=== PATIENT | female | born 1985 | race Caucasian/White ===

== ENCOUNTER → 2020-12-05 | Outpatient (CLI) | payer MEDICARE, OTHER ==
[~2020-12-05] MED LIST: ARTANE 2MG TABLE2 MG GT; ASPIRIN CHEWABL81 MG PO; BACLOFEN PUMP SC; BACLOFEN5 MG GT; CITRATE OF MAG296 ML PO; COLACE SOL100 MG/10 GT; FLEET ENEMA EX230 ML PR; IBUPROFEN PO; KLONOPIN TAB 00.5 MG GT; MIRALAX17 GM PO; OXYCODONE GT; OZOBAX5 MG/5 ML GT; POTASSIUM20 MEQ/11 GT; PRENATAL TABLE1 EAC3 GT; ZOLOFT50 MG GT
[2020-12-05 16:20] LABS: BUN/CREATININE RATIO 44 (0-10)
[2020-12-05 16:24] LABS: HEMOGLOBIN 12.9 gm/dl (12.3-15.3); RED BLOOD COUNT 4.06 M/UL (4.00-5.10); WHITE BLOOD COUNT 5.6 K/UL (4.5-11.0)
== END ==
LOC: LAB 15:01
PROVIDERS: Nurse Practitioner Family
DX: K59.00 Constipation, unspecified (principal); Z78.9 Other specified health status
CPT/HCPCS: 36415; 80053; 84439; 84443; 85025

== ENCOUNTER 2021-01-04 11:31 | Emergency (ER) | payer MEDICARE, OTHER ==
[2021-01-04 12:56] LABS: HEMOGLOBIN 13.3 gm/dl (12.3-15.3); RED BLOOD COUNT 4.12 M/UL (4.00-5.10); WHITE BLOOD COUNT 5.8 K/UL (4.5-11.0)
[2021-01-04 13:26] LABS: BUN/CREATININE RATIO 34 (0-10)
== END 2021-01-04 14:20 | disposition home or self-care (01) ==
LOC: ER1 11:31
PROVIDERS: Physician Assistant
DX: R41.82 Altered mental status, unspecified (principal); Z87.820 Personal history of traumatic brain injury; Z98.890 Other specified postprocedural states
CPT/HCPCS: 70450; 71045; 80053; 81001; 83605; 85025; 87040; 93005; 99285

== ENCOUNTER → 2021-02-28 | Outpatient (CLI) | payer MEDICARE, OTHER | LOC: RAD 15:02 | DX: K59.00 Constipation, unspecified (principal); K56.41 Fecal impaction | CPT/HCPCS: 74018 ==

== ENCOUNTER 2021-03-01 21:46 | Emergency (ER) | payer MEDICARE, OTHER | END 2021-03-02 02:20 | disposition home or self-care (01) | LOC: ER1 21:46 | DX: Z43.1 Encounter for attention to gastrostomy (principal); R21 Rash and other nonspecific skin eruption | CPT/HCPCS: 43762; 74018; 99283; Q9963 ==

== ENCOUNTER → 2021-03-21 | Outpatient (CLI) | payer MEDICARE, OTHER | LOC: RAD 13:53 | DX: K59.00 Constipation, unspecified (principal); R14.3 Flatulence | CPT/HCPCS: 74018 ==

== ENCOUNTER → 2021-05-16 | Outpatient (CLI) | payer MEDICARE, OTHER ==
[2021-05-16 15:18] LABS: HEMOGLOBIN 12.3 gm/dl (12.3-15.3); RED BLOOD COUNT 3.82 M/UL (4.00-5.10); WHITE BLOOD COUNT 5.6 K/UL (4.5-11.0)
[2021-05-16 15:35] LABS: BUN/CREATININE RATIO 34 (0-10)
== END ==
LOC: LAB 14:20
PROVIDERS: Nurse Practitioner Family
DX: B19.20 Unspecified viral hepatitis C without hepatic coma (principal)
CPT/HCPCS: 36415; 80053; 85025

== ENCOUNTER 2021-05-18 07:06 | Emergency (ER) | payer MEDICARE, OTHER | END 2021-05-18 08:47 | disposition home or self-care (01) | LOC: ER1 07:06 | DX: K94.23 Gastrostomy malfunction (principal); Z87.820 Personal history of traumatic brain injury | CPT/HCPCS: 43762; 74018; 99283; Q9963 ==

== ENCOUNTER → 2021-06-05 | Outpatient (CLI) | payer MEDICARE, OTHER | LOC: US 09:09 | DX: B19.20 Unspecified viral hepatitis C without hepatic coma (principal); R18.8 Other ascites | CPT/HCPCS: 76705 ==

== ENCOUNTER 2021-07-09 10:25 | Emergency (ER) | payer MEDICARE, OTHER | END 2021-07-09 13:30 | disposition home or self-care (01) | LOC: ER1 10:25 | DX: K94.23 Gastrostomy malfunction (principal) | CPT/HCPCS: 43752; 74018; 99283 ==

== ENCOUNTER → 2021-08-23 | Outpatient (CLI) | payer MEDICARE, OTHER | LOC: CT 07:23 | DX: R10.9 Unspecified abdominal pain (principal) | CPT/HCPCS: Q9967 ==

== ENCOUNTER → 2021-10-10 | Outpatient (CLI) | payer MEDICARE, OTHER ==
[2021-10-10 08:43] LABS: HEMOGLOBIN 10.7 gm/dl (12.3-15.3); RED BLOOD COUNT 3.27 M/UL (4.00-5.10); WHITE BLOOD COUNT 4.2 K/UL (4.5-11.0)
[2021-10-10 09:03] LABS: BUN/CREATININE RATIO 33 (0-10)
== END ==
LOC: CT 07:27
PROVIDERS: Nurse Practitioner Family
DX: R10.9 Unspecified abdominal pain (principal); K59.00 Constipation, unspecified; R47.01 Aphasia; R53.81 Other malaise
CPT/HCPCS: 36415; 80053; 84439; 84443; 85025; Q9967

== ENCOUNTER 2021-10-12 15:01 | Emergency (ER) | payer MEDICARE, OTHER | END 2021-10-12 19:39 | disposition home or self-care (01) | LOC: ER1 15:01 | DX: K94.20 Gastrostomy complication, unspecified (principal) | CPT/HCPCS: 43762; 74018; 96372; 99283; J2060; Q9963 ==

== ENCOUNTER 2021-10-18 15:56 | Emergency (ER) | payer MEDICARE, OTHER | END 2021-10-18 17:02 | disposition home or self-care (01) | LOC: ER1 15:56 | DX: Z43.1 Encounter for attention to gastrostomy (principal) | CPT/HCPCS: 43762; 74018; 99283; Q9963 ==

== ENCOUNTER → 2021-10-23 | Outpatient (CLI) | payer MEDICARE, OTHER | LOC: LAB 14:44 | DX: D64.9 Anemia, unspecified (principal); E46 Unspecified protein-calorie malnutrition | CPT/HCPCS: 36415; 82607; 82728; 82746; 83540; 83550; 83615; 84466; 85045 ==

== ENCOUNTER 2021-11-03 00:55 | Emergency (ER) | payer MEDICARE, OTHER ==
[2021-11-03 01:57] LABS: HEMOGLOBIN 10.4 gm/dl (12.3-15.3); RED BLOOD COUNT 3.18 M/UL (4.00-5.10); WHITE BLOOD COUNT 3.5 K/UL (4.5-11.0)
[2021-11-03 02:17] LABS: BUN/CREATININE RATIO 45 (0-10)
[2021-11-03] MEDS ORDERED: KEPPRA500 MG PO (03:55)
== END 2021-11-03 04:45 | disposition home or self-care (01) ==
LOC: ER1 00:55
PROVIDERS: Physician Assistant
DX: R56.9 Unspecified convulsions (principal); Z20.822 Contact with and (suspected) exposure to COVID-19
CPT/HCPCS: 0240U; 51702; 70450; 71045; 80053; 80307; 81001; 83690; 83735; 84703; 85025; 87086; 93005; 96374; 99285; J1953

== ENCOUNTER 2021-11-08 14:38 | Emergency (ER) | payer MEDICARE, OTHER ==
[~2021-11-08 14:38] MED LIST changes: +KEPPRA500 MG PO
[2021-11-08 16:25] LABS: HEMOGLOBIN 12.2 gm/dl (12.3-15.3); RED BLOOD COUNT 3.64 M/UL (4.00-5.10); WHITE BLOOD COUNT 5.2 K/UL (4.5-11.0)
[2021-11-08 16:46] LABS: BUN/CREATININE RATIO 40 (0-10)
[2021-11-08 17:53] LABS: BORDETELLA PARAPERTUSSIS Not Detected (Not Detectd); BORDETELLA PERTUSSIS Not Detected (Not Detectd); CHLAMYDIA PNEUMONIAE Not Detected (Not Detectd); CORONAVIRUS HKU1 Not Detected (Not Detectd); CORONAVIRUS NL63 Not Detected (Not Detectd); CORONAVIRUS OC43 Not Detected (Not Detectd); CORONOAVIRUS 229E Not Detected (Not Detectd); HUMAN METAPNEUMOVIRUS Not Detected (Not Detectd); HUMAN RHINOVIRUS/ENTEROVIRUS Not Detected (Not Detectd); INFLUENZA A Not Detected (Not Detectd); INFLUENZA B Not Detected (Not Detectd); MYCOPLASMA PNEUMONIAE Not Detected (Not Detectd); PARAINFLUENZA VIRUS 1 Not Detected (Not Detectd); PARAINFLUENZA VIRUS 2 Not Detected (Not Detectd); PARAINFLUENZA VIRUS 3 Not Detected (Not Detectd); PARAINFLUENZA VIRUS 4 Not Detected (Not Detectd); RESPIRATORY SYNCYTIAL VIRUS Not Detected (Not Detectd)
[2021-11-08 19:38] LABS: SARS-CoV-2 NOT DETECTED (Not Detectd)
== END 2021-11-09 00:35 | disposition home or self-care (01) ==
LOC: ER1 14:38
PROVIDERS: Nurse Practitioner; Physician Assistant
DX: K94.23 Gastrostomy malfunction (principal); R53.83 Other fatigue; Z20.822 Contact with and (suspected) exposure to COVID-19
CPT/HCPCS: 43762; 51701; 70450; 71045; 71250; 74018; 80048; 81001; 83605; 84439; 84443; 85025; 87040; 87086; 87633; 96374; 99284; J2405; J7030; Q9963

== ENCOUNTER 2021-11-25 14:12 | Emergency (ER) | payer MEDICARE, OTHER | END 2021-11-25 15:48 | disposition home or self-care (01) | LOC: ER1 14:12 | DX: K59.00 Constipation, unspecified (principal); G40.909 Epilepsy, unspecified, not intractable, without status epilepticus | CPT/HCPCS: 99283 ==

== ENCOUNTER 2021-12-01 01:47 | Emergency (ER) | payer MEDICARE, MEDICAID, OTHER ==
[2021-12-01 02:29] LABS: HEMOGLOBIN 10.3 gm/dl (12.3-15.3); RED BLOOD COUNT 3.2 M/UL (4.00-5.10); WHITE BLOOD COUNT 8.4 K/UL (4.5-11.0)
[2021-12-01 02:58] LABS: BUN/CREATININE RATIO 49 (0-10)
== END 2021-12-01 04:57 | disposition home or self-care (01) ==
LOC: ER1 01:47
PROVIDERS: Family Medicine
DX: S86.812A Strain of other muscle(s) and tendon(s) at lower leg level, left leg, initial encounter (principal); F17.290 Nicotine dependence, other tobacco product, uncomplicated; W22.8XXA Striking against or struck by other objects, initial encounter
CPT/HCPCS: 0240U; 71045; 80048; 82550; 82553; 83605; 83874; 83880; 84484; 85025; 93005; 99284

== ENCOUNTER 2022-01-30 13:44 | Emergency (ER) | payer MEDICARE, OTHER ==
[~2022-01-30 13:44] MED LIST changes: +ASPIRIN CHEWABL81 MG GT; -ASPIRIN CHEWABL81 MG PO
[2022-01-30 14:37] LABS: BORDETELLA PARAPERTUSSIS Not Detected (Not Detectd); BORDETELLA PERTUSSIS Not Detected (Not Detectd); CHLAMYDIA PNEUMONIAE Not Detected (Not Detectd); CORONAVIRUS HKU1 Not Detected (Not Detectd); CORONAVIRUS NL63 Not Detected (Not Detectd); CORONAVIRUS OC43 Not Detected (Not Detectd); CORONOAVIRUS 229E Not Detected (Not Detectd); HUMAN METAPNEUMOVIRUS Not Detected (Not Detectd); HUMAN RHINOVIRUS/ENTEROVIRUS Not Detected (Not Detectd); INFLUENZA A Not Detected (Not Detectd); INFLUENZA B Not Detected (Not Detectd); MYCOPLASMA PNEUMONIAE Not Detected (Not Detectd); PARAINFLUENZA VIRUS 1 Not Detected (Not Detectd); PARAINFLUENZA VIRUS 2 Not Detected (Not Detectd); PARAINFLUENZA VIRUS 3 Not Detected (Not Detectd); PARAINFLUENZA VIRUS 4 Not Detected (Not Detectd); RESPIRATORY SYNCYTIAL VIRUS Not Detected (Not Detectd)
[2022-01-30 14:41] LABS: HEMOGLOBIN 10.6 gm/dl (12.3-15.3); RED BLOOD COUNT 3.26 M/UL (4.00-5.10); WHITE BLOOD COUNT 5.4 K/UL (4.5-11.0)
[2022-01-30 16:31] LABS: SARS-CoV-2 NOT DETECTED (Not Detectd)
[2022-01-30] MEDS ORDERED: CEFDINIR250 MG/5 M PO (16:40)
== END 2022-01-30 18:50 | disposition home or self-care (01) ==
LOC: ER1 13:44
PROVIDERS: Emergency Medicine
DX: E86.0 Dehydration (principal); N39.0 Urinary tract infection, site not specified; Z20.822 Contact with and (suspected) exposure to COVID-19; N17.9 Acute kidney failure, unspecified
CPT/HCPCS: 36415; 71045; 74018; 80053; 81001; 83690; 85025; 87077; 87086; 87186; 87633; 96374; 99285; J0696; Q9963

== ENCOUNTER 2022-02-03 09:05 | Inpatient (IN) | payer MEDICARE, OTHER ==
[~2022-02-03] VITALS: Ht 170.2 cm; Wt 65.8 kg
[~2022-02-03 09:05] MED LIST changes: +CEFDINIR250 MG/5 M PO
[2022-02-03 10:45] LABS: RED BLOOD COUNT 5.2 M/UL (4.00-5.10); WHITE BLOOD COUNT 2.5 K/UL (4.5-11.0)
[2022-02-03 10:48] LABS: HEMOGLOBIN 16.7 gm/dl (12.3-15.3)
[2022-02-03 13:17] LABS: BUN/CREATININE RATIO 30 (0-10)
[2022-02-03] MEDS ORDERED: LACTULOSE10 GM/15 M GT (14:28)
[2022-02-03] MEDS ORDERED: LEVETIRACETAM500 MG GT (14:28)
[2022-02-03] MEDS ORDERED: CLONAZEPAM1 MG PO (14:29)
[2022-02-03] MEDS ORDERED: TRAZODONE HCL150 MG PO (14:29)
[2022-02-03] MEDS ORDERED: METAMUCIL PACK3.4 GM PO (14:29)
[2022-02-04 06:45] LABS: BUN/CREATININE RATIO 21 (0-10)
[2022-02-04 07:31] LABS: WHITE BLOOD COUNT 4.6 K/UL (4.5-11.0)
[2022-02-04 07:32] LABS: HEMOGLOBIN 9.3 gm/dl (12.3-15.3); RED BLOOD COUNT 2.89 M/UL (4.00-5.10)
[2022-02-05 06:46] LABS: BUN/CREATININE RATIO 22 (0-10)
--- NOTE | 2022-02-05 13:39 | NUR ---
UPON ENTERING PATIENTS ROOM PATIENT IS NOTED TO HAVE PULLED HER PEG TUBE OUT. PATIENT HAS MILD BLEEDING AT THE SITE. MOTHER IS NOT AT PATIENTS BEDSIDE. CONTACTED AND SHE STATED TO CALL THE SURGEON HANDKERCHIEF MAKER AND SPEAK WITH THEM ABOUT THE CASE.
--- NOTE | 2022-02-05 13:45 | NUR ---
STATED TO GET A REPLACEMENT TUBE AND HE WOULD REINSERT AT BEDSIDE. HE STATES TO LEAVE TH SITE OPEN TO AIR FOR NOW.
[2022-02-06 08:02] LABS: BUN/CREATININE RATIO 19 (0-10)
--- NOTE | 2022-02-06 14:44 | NUR ---
REPORT CALLED TO [facility]
--- NOTE | 2022-02-06 17:29 | NUR ---
AMBULANCE HAD ARRIVED TO TRANSPORT PATIENT HOME. WHEN RN ATTEMPTED TO REMOVE IV, RN OBSERVED PAG TUBE HAD BEEN PULLED OUT AND THROWN IN THE FLOOR. RN ATTEMPTED TO NOTIFY DR. ODOM, NO ANSWER. RN LEFT CALL BACK NUMBER. RN CALLED DR. MOHAMUD TO NOTIFY HER. INSTRUCTED RN TO NOTIFY DR. ODOM. RN TO CALL AGAIN. EXECUTIVE SECRETARY MADE AWARE.
--- NOTE | 2022-02-06 17:55 | NUR ---
RN NOTIFIED DR. TOPETE ABOUT PATIENT PULLING OUT PEG TUBE. MD STATED HE WOULD COME ASSESS PATIENT.
--- NOTE | 2022-02-06 20:08 | NUR ---
[facility] NOTIFIED AT 195002/06/22 THAT PT IS READY FOR TRANSPORT BACK TO HOME AFTER BEING DISCHARGED.
== END 2022-02-06 20:19 | disposition home or self-care (01) | DRG 923 ==
LOC: ER1 09:05 → CDU 13:48 → M/S 13:48
PROVIDERS: Emergency Medicine; Physician Assistant; ADMIT Internal Medicine
PROC: 3E03329 Introduction of Other Anti-infective into Peripheral Vein, Percutaneous Approach (ICD-10-PCS; principal; 2022-02-03)
PROC: 0DH63UZ Insertion of Feeding Device into Stomach, Percutaneous Approach (ICD-10-PCS; 2022-02-06)
DX: T68.XXXA Hypothermia, initial encounter (principal); N30.00 Acute cystitis without hematuria; E87.3 Alkalosis; Z20.822 Contact with and (suspected) exposure to COVID-19; K59.09 Other constipation; B96.1 Klebsiella pneumoniae [K. pneumoniae] as the cause of diseases classified elsewhere; G40.909 Epilepsy, unspecified, not intractable, without status epilepticus; R33.8 Other retention of urine; Z87.820 Personal history of traumatic brain injury; Z93.1 Gastrostomy status; Z93.3 Colostomy status; Z80.3 Family history of malignant neoplasm of breast; Z87.891 Personal history of nicotine dependence; Z98.890 Other specified postprocedural states; Z79.899 Other long term (current) drug therapy; Z79.82 Long term (current) use of aspirin
CPT/HCPCS: 36415; 51702; 71045; 74018; 80048; 80053; 80202; 81001; 82550; 82553; 83605; 83735; 84484; 84703; 85025; 87040; 87086; 93005; 96374; 99285; J0696; J3370; J7070; Q9963; Q9967; U0002

== ENCOUNTER 2022-02-07 17:42 | Emergency (ER) | payer MEDICARE, OTHER ==
[~2022-02-07 17:42] MED LIST changes: +CLONAZEPAM1 MG PO; +LACTULOSE10 GM/15 M GT; +LEVETIRACETAM500 MG GT; +METAMUCIL PACK3.4 GM PO; +TRAZODONE HCL150 MG PO
[2022-02-07 18:51] LABS: HEMOGLOBIN 10.1 gm/dl (12.3-15.3); RED BLOOD COUNT 3.08 M/UL (4.00-5.10); WHITE BLOOD COUNT 4.1 K/UL (4.5-11.0)
[2022-02-07 18:55] LABS: BUN/CREATININE RATIO 24 (0-10)
== END 2022-02-08 00:11 | disposition home or self-care (01) ==
LOC: ER1 17:42
PROVIDERS: Physician Assistant
DX: R68.0 Hypothermia, not associated with low environmental temperature (principal); R30.0 Dysuria
CPT/HCPCS: 71045; 80053; 81001; 83605; 83735; 83880; 84100; 84439; 84443; 85025; 85610; 85652; 85730; 86140; 87040; 87086; 93005; 96374; 99285; J0696; Q9967

== ENCOUNTER → 2022-02-21 | Outpatient (CLI) | payer MEDICARE, OTHER | LOC: CT 10:14 | DX: S06.9X9A Unspecified intracranial injury with loss of consciousness of unspecified duration, initial encounter (principal); T68.XXXA Hypothermia, initial encounter | CPT/HCPCS: 70450 ==

== ENCOUNTER → 2022-03-17 | Outpatient (CLI) | payer MEDICARE, OTHER | LOC: KOH-I 15:24 | DX: J18.9 Pneumonia, unspecified organism (principal) | CPT/HCPCS: 71045 ==

== ENCOUNTER → 2022-03-31 | Outpatient (CLI) | payer MEDICARE, OTHER | LOC: KOH-I 15:52 | DX: J18.9 Pneumonia, unspecified organism (principal); J98.11 Atelectasis | CPT/HCPCS: 71045 ==

== ENCOUNTER 2022-04-14 15:49 | Emergency (ER) | payer MEDICARE, OTHER ==
[2022-04-14 16:25] LABS: HEMOGLOBIN 10.9 gm/dl (12.3-15.3); RED BLOOD COUNT 3.29 M/UL (4.00-5.10); WHITE BLOOD COUNT 3.6 K/UL (4.5-11.0)
[2022-04-14 16:51] LABS: BUN/CREATININE RATIO 58 (0-10)
== END 2022-04-14 20:30 | disposition home or self-care (01) ==
LOC: ER1 15:49
PROVIDERS: Nurse Practitioner
DX: R45.1 Restlessness and agitation (principal); Z20.822 Contact with and (suspected) exposure to COVID-19; Z79.82 Long term (current) use of aspirin
CPT/HCPCS: 0240U; 51701; 71045; 80053; 81001; 83605; 85025; 87040; 87086; 99285

== ENCOUNTER 2022-05-11 07:28 | Emergency (ER) | payer MEDICARE, OTHER | END 2022-05-11 09:36 | disposition home or self-care (01) | LOC: ER1 07:28 | DX: Z43.1 Encounter for attention to gastrostomy (principal) | CPT/HCPCS: 43762; 74018; 99283; Q9963 ==

== ENCOUNTER → 2022-05-13 | Outpatient (CLI) | payer MEDICARE, OTHER ==
[2022-05-13 14:01] LABS: HEMOGLOBIN 10.9 gm/dl (12.3-15.3); RED BLOOD COUNT 3.29 M/UL (4.00-5.10); WHITE BLOOD COUNT 3.2 K/UL (4.5-11.0)
[2022-05-13 14:29] LABS: BUN/CREATININE RATIO 27 (0-10)
== END ==
LOC: OPSV 13:00
PROVIDERS: Nurse Practitioner Family
DX: R82.90 Unspecified abnormal findings in urine (principal); D64.9 Anemia, unspecified; R79.89 Other specified abnormal findings of blood chemistry; K59.00 Constipation, unspecified; R53.81 Other malaise; R09.89 Other specified symptoms and signs involving the circulatory and respiratory systems
CPT/HCPCS: 71045; 80053; 81001; 82728; 83540; 83550; 84439; 84443; 84466; 85025; 87086; G0463

== ENCOUNTER → 2022-05-21 | Outpatient (CLI) | payer MEDICARE, OTHER ==
[~2022-05-21] MED LIST changes: +VIBRAMYCIN 55 MG/ML GT
[2022-05-21 15:00] LABS: BUN/CREATININE RATIO 44 (0-10)
== END ==
LOC: LAB 13:34
PROVIDERS: Nurse Practitioner Family
DX: R79.81 Abnormal blood-gas level (principal)
CPT/HCPCS: 36415; 80048

== ENCOUNTER 2022-05-22 23:51 | Emergency (ER) | payer MEDICARE, OTHER ==
[~2022-05-22 23:51] MED LIST changes: -VIBRAMYCIN 55 MG/ML GT
[2022-05-23 02:31] LABS: HEMOGLOBIN 10.4 gm/dl (12.3-15.3); RED BLOOD COUNT 3.11 M/UL (4.00-5.10); WHITE BLOOD COUNT 6.2 K/UL (4.5-11.0)
[2022-05-23 02:48] LABS: BUN/CREATININE RATIO 43 (0-10)
[2022-05-23] MEDS ORDERED: VIBRAMYCIN 55 MG/ML GT (03:31)
--- NOTE | 2022-05-23 03:31 | NUR ---
ATTEMPTED TO NT SX PT X'S 2, UNABLE TO PASS SX CATH DOWN BOTH NARES. SMALL AMOUNT OF BLEEDING TO LEFT NARE WAS PRESENT. ORAL SX ATTEMPTED X'S 1 PT UNABLE TO PRODUCE SAMPLE.
[2022-05-24 01:00] LABS: KPC-CARBAPENEM-RESISTANCE GENE Not Detected (Negative); vanA/B (VANCOMYCIN RESIST GENE Not Detected (Negative)
[2022-05-24 01:01] LABS: CANDIDA ALBICANS Not Detected (Negative); CANDIDA KRUSEI Not Detected (Negative); CANDIDA TROPICALIS Not Detected (Negative); ESCHERICHIA COLI Not Detected (Negative); HAEMOPHILUS INFLUENZAE Not Detected (Negative); KLEBSIELLA OXYTOCA Not Detected (Negative); KLEBSIELLA PNEUMONIAE Not Detected (Negative); PROTEUS Not Detected (Negative); PSEUDOMONAS AERUGINOSA Not Detected (Negative); SERRATIA MARCESANS Not Detected (Negative); STAPHYLOCOCCUS AUREUS Not Detected (Negative); STREP AGALACTIAE (GROUP B) Not Detected (Negative); STREP PYOGENES (GROUP A) Not Detected (Negative); STREPTOCOCCUS Not Detected (Negative)
[2022-05-24 02:11] LABS: STAPHYLOCOCCUS DETECTED (Negative)
== END 2022-05-23 04:50 | disposition home or self-care (01) ==
LOC: ER1 23:51
PROVIDERS: Physician Assistant
DX: J18.9 Pneumonia, unspecified organism (principal); N39.0 Urinary tract infection, site not specified; Z51.81 Encounter for therapeutic drug level monitoring
CPT/HCPCS: 36600; 71045; 80053; 81001; 82803; 83605; 83735; 83880; 84100; 85025; 85610; 85652; 85730; 86140; 87040; 87077; 87086; 87150; 87186; 96374; 99284; J7030

== ENCOUNTER 2022-06-10 10:09 | Emergency (ER) | payer MEDICARE, OTHER ==
[~2022-06-10 10:09] MED LIST changes: -OMNICEF 300 MG300 MG PO; -ZITHROMAX250 MG PO
[2022-06-10 12:03] LABS: HEMOGLOBIN 10.6 gm/dl (12.3-15.3); RED BLOOD COUNT 3.17 M/UL (4.00-5.10); WHITE BLOOD COUNT 9.1 K/UL (4.5-11.0)
[2022-06-10 12:30] LABS: BORDETELLA PARAPERTUSSIS Not Detected (Not Detectd); BORDETELLA PERTUSSIS Not Detected (Not Detectd); CHLAMYDIA PNEUMONIAE Not Detected (Not Detectd); CORONAVIRUS HKU1 Not Detected (Not Detectd); CORONAVIRUS NL63 Not Detected (Not Detectd); CORONAVIRUS OC43 Not Detected (Not Detectd); CORONOAVIRUS 229E Not Detected (Not Detectd); HUMAN METAPNEUMOVIRUS Not Detected (Not Detectd); HUMAN RHINOVIRUS/ENTEROVIRUS Not Detected (Not Detectd); INFLUENZA A Not Detected (Not Detectd); INFLUENZA B Not Detected (Not Detectd); MYCOPLASMA PNEUMONIAE Not Detected (Not Detectd); PARAINFLUENZA VIRUS 1 Not Detected (Not Detectd); PARAINFLUENZA VIRUS 2 Not Detected (Not Detectd); PARAINFLUENZA VIRUS 3 Not Detected (Not Detectd); PARAINFLUENZA VIRUS 4 Not Detected (Not Detectd); RESPIRATORY SYNCYTIAL VIRUS Not Detected (Not Detectd)
[2022-06-10 13:05] LABS: BUN/CREATININE RATIO 41 (0-10)
[2022-06-10 13:26] LABS: SARS-CoV-2 NOT DETECTED (Not Detectd)
[2022-06-10] MEDS ORDERED: OMNICEF 300 MG300 MG PO (16:37)
[2022-06-10] MEDS ORDERED: ZITHROMAX250 MG PO (16:37)
== END 2022-06-10 17:44 | disposition home or self-care (01) ==
LOC: ER1 10:09
PROVIDERS: Physician Assistant
DX: J18.9 Pneumonia, unspecified organism (principal); R31.9 Hematuria, unspecified; G40.909 Epilepsy, unspecified, not intractable, without status epilepticus; Z20.822 Contact with and (suspected) exposure to COVID-19
CPT/HCPCS: 71045; 76705; 80053; 81001; 85025; 87633; 96374; 96375; 99284; J0696; J2060

== ENCOUNTER → 2022-06-10 | Outpatient (CLI) | payer MEDICARE, OTHER ==
[~2022-06-10] MED LIST changes: +OMNICEF 300 MG300 MG PO; +VIBRAMYCIN 55 MG/ML GT; +ZITHROMAX250 MG PO
== END ==
LOC: KOH-I 07:59
DX: B19.20 Unspecified viral hepatitis C without hepatic coma (principal); N26.1 Atrophy of kidney (terminal)
CPT/HCPCS: 76705

== ENCOUNTER 2022-06-18 17:28 | Emergency (ER) | payer MEDICARE, OTHER ==
[~2022-06-18 17:28] MED LIST changes: +OMNICEF 300 MG300 MG PO; +ZITHROMAX250 MG PO
[2022-06-18 19:46] LABS: HEMOGLOBIN 11.3 gm/dl (12.3-15.3); RED BLOOD COUNT 3.4 M/UL (4.00-5.10); WHITE BLOOD COUNT 9.4 K/UL (4.5-11.0)
[2022-06-18 20:20] LABS: BUN/CREATININE RATIO 40 (0-10)
== END 2022-06-18 21:25 | disposition home or self-care (01) ==
LOC: ER1 17:28
PROVIDERS: Physician Assistant
DX: R10.9 Unspecified abdominal pain (principal); R11.10 Vomiting, unspecified; Z20.822 Contact with and (suspected) exposure to COVID-19
CPT/HCPCS: 0240U; 51701; 71045; 74018; 80053; 81001; 83690; 85025; 99284; Q9963

== ENCOUNTER 2022-06-28 17:55 | Emergency (ER) | payer MEDICARE, OTHER ==
[2022-06-28 19:01] LABS: HEMOGLOBIN 9.7 gm/dl (12.3-15.3); RED BLOOD COUNT 2.9 M/UL (4.00-5.10); WHITE BLOOD COUNT 7.7 K/UL (4.5-11.0)
[2022-06-28 19:22] LABS: BUN/CREATININE RATIO 44 (0-10)
[2022-06-29] MEDS ORDERED: DIFLUCAN150 MG PO (01:19)
[2022-06-29] MEDS ORDERED: CEPHALEXIN500 M1 PO (01:19)
== END 2022-06-29 00:12 | disposition home or self-care (01) ==
LOC: ER1 17:55
PROVIDERS: Physician Assistant
DX: N39.0 Urinary tract infection, site not specified (principal); R31.9 Hematuria, unspecified; Z87.820 Personal history of traumatic brain injury; Z20.822 Contact with and (suspected) exposure to COVID-19
CPT/HCPCS: 0240U; 36415; 71045; 80053; 81001; 83605; 83690; 83735; 85025; 93005; 96361; 96374; 99285; J0696; Q9967

== ENCOUNTER → 2022-07-03 | Outpatient (CLI) | payer MEDICARE, OTHER ==
[~2022-07-03] MED LIST changes: +CEPHALEXIN500 M1 PO; +DIFLUCAN150 MG PO
[2022-07-03 13:50] LABS: HEMOGLOBIN 9.9 gm/dl (12.3-15.3); RED BLOOD COUNT 2.97 M/UL (4.00-5.10); WHITE BLOOD COUNT 3.1 K/UL (4.5-11.0)
== END ==
LOC: LAB 13:05
PROVIDERS: Nurse Practitioner Family
DX: D64.9 Anemia, unspecified (principal); E46 Unspecified protein-calorie malnutrition
CPT/HCPCS: 36415; 82607; 82728; 82746; 83540; 83550; 83615; 84466; 85025; 85045

== ENCOUNTER 2022-07-09 17:16 | Inpatient (IN) | payer MEDICARE, OTHER ==
[~2022-07-09] VITALS: Ht 170.2 cm; Wt 70.4 kg
[~2022-07-09 17:16] MED LIST changes: +CLONAZEPAM1 MG GT; -CLONAZEPAM1 MG PO; +METAMUCIL PACK3.4 GM GT; -METAMUCIL PACK3.4 GM PO; +TRAZODONE HCL150 MG GT; -TRAZODONE HCL150 MG PO
[2022-07-09 20:33] LABS: RED BLOOD COUNT 3.02 M/UL (4.00-5.10)
[2022-07-09 21:01] LABS: BUN/CREATININE RATIO 51 (0-10)
[2022-07-10 09:59] LABS: HEMOGLOBIN 9.6 gm/dl (12.3-15.3); RED BLOOD COUNT 2.91 M/UL (4.00-5.10); WHITE BLOOD COUNT 3.8 K/UL (4.5-11.0)
[2022-07-10 10:13] LABS: BUN/CREATININE RATIO 38 (0-10)
[2022-07-10] MEDS ORDERED: BISACODYL10 MG PR (10:42)
[2022-07-10] MEDS ORDERED: ALLERGY RELIEF10 MG GT (10:42)
[2022-07-10] MEDS ORDERED: MYCOSTATIN100000 UTS PO (10:44)
[2022-07-10 19:17] LABS: BUN/CREATININE RATIO 35 (0-10)
[2022-07-11 03:07] LABS: HEMOGLOBIN 8.5 gm/dl (12.3-15.3)
[2022-07-11 03:21] LABS: RED BLOOD COUNT 2.58 M/UL (4.00-5.10); WHITE BLOOD COUNT 9.2 K/UL (4.5-11.0)
[2022-07-11 03:58] LABS: BUN/CREATININE RATIO 35 (0-10)
[2022-07-12 01:50] LABS: HEMOGLOBIN 8.4 gm/dl (12.3-15.3); RED BLOOD COUNT 2.54 M/UL (4.00-5.10)
[2022-07-12 01:52] LABS: WHITE BLOOD COUNT 4.5 K/UL (4.5-11.0)
[2022-07-12 02:01] LABS: BUN/CREATININE RATIO 31 (0-10)
[2022-07-12] MEDS ORDERED: LEVOFLOXACIN500 MG PO (09:06)
[2022-07-13 04:51] LABS: BUN/CREATININE RATIO 28 (0-10)
[2022-07-13 05:00] LABS: HEMOGLOBIN 8.1 gm/dl (12.3-15.3); RED BLOOD COUNT 2.46 M/UL (4.00-5.10); WHITE BLOOD COUNT 4.3 K/UL (4.5-11.0)
--- NOTE | 2022-07-13 06:01 | NUR ---
PT PASSED BLOOD CLOTS IN HER STOOL. NOTIFIED DR HARRISON, RECIEVED NO NEW ORDERS. WILL CONTINUE TO MONITOR.
== END 2022-07-13 11:44 | disposition home or self-care (01) | DRG 179 ==
LOC: ER1 17:16 → M/S 22:52 → CDU 22:52 → M/S 07-10 00:25
PROVIDERS: Internal Medicine; Physician Assistant; ADMIT Internal Medicine
PROC: B24BZZZ Ultrasonography of Heart with Aorta (ICD-10-PCS; principal; 2022-07-10)
DX: J69.0 Pneumonitis due to inhalation of food and vomit (principal); K59.09 Other constipation; L89.522 Pressure ulcer of left ankle, stage 2; Z20.822 Contact with and (suspected) exposure to COVID-19; G40.909 Epilepsy, unspecified, not intractable, without status epilepticus; E87.5 Hyperkalemia; R00.1 Bradycardia, unspecified; R53.81 Other malaise; Z87.820 Personal history of traumatic brain injury; Z87.440 Personal history of urinary (tract) infections; Z80.3 Family history of malignant neoplasm of breast; Z93.0 Tracheostomy status; Z93.1 Gastrostomy status; Z79.899 Other long term (current) drug therapy; Z79.82 Long term (current) use of aspirin; Z74.01 Bed confinement status
CPT/HCPCS: ECHO; 36415; 71045; 80048; 80053; 80202; 81001; 82550; 82553; 82962; 83605; 83735; 83880; 84100; 84439; 84443; 84484; 85025; 85027; 85610; 85652; 85730; 86140; 87040; 87070; 87077; 87081; 87086; 87186; 87205; 93005; 93306; 94640; 94664; 94760; 96365; 96375; 99285; G0378; J0360; J0696; J1650; J2543; J3370; J7070; U0002

== ENCOUNTER → 2022-07-23 | Outpatient (CLI) | payer MEDICARE, OTHER ==
[~2022-07-23] MED LIST changes: +ALLERGY RELIEF10 MG GT; +BISACODYL10 MG PR; +LEVOFLOXACIN500 MG PO; +MYCOSTATIN100000 UTS PO
[2022-07-23 16:28] LABS: HEMOGLOBIN 9.9 gm/dl (12.3-15.3); RED BLOOD COUNT 2.98 M/UL (4.00-5.10); WHITE BLOOD COUNT 4.2 K/UL (4.5-11.0)
[2022-07-23 16:59] LABS: BUN/CREATININE RATIO 41 (0-10)
== END ==
LOC: LAB 16:04
PROVIDERS: Nurse Practitioner Family
DX: D64.9 Anemia, unspecified (principal); R79.89 Other specified abnormal findings of blood chemistry
CPT/HCPCS: 36415; 80048; 84439; 84443; 85025

== ENCOUNTER → 2022-08-07 | Outpatient (CLI) | payer MEDICARE, OTHER | LOC: OPSV 13:10 | DX: N39.0 Urinary tract infection, site not specified (principal); R82.90 Unspecified abnormal findings in urine | CPT/HCPCS: 81001; 87086 ==

== ENCOUNTER 2022-08-18 12:36 | Emergency (ER) | payer MEDICARE, OTHER ==
[2022-08-18 13:51] LABS: HEMOGLOBIN 10.2 gm/dl (12.3-15.3); RED BLOOD COUNT 3.02 M/UL (4.00-5.10); WHITE BLOOD COUNT 4.4 K/UL (4.5-11.0)
[2022-08-18 14:34] LABS: BUN/CREATININE RATIO 55 (0-10)
== END 2022-08-18 19:40 | disposition home or self-care (01) ==
LOC: ER1 12:36
PROVIDERS: Student in an Organized Health Care Education/Training Program
DX: E87.1 Hypo-osmolality and hyponatremia (principal); G40.909 Epilepsy, unspecified, not intractable, without status epilepticus; Z20.822 Contact with and (suspected) exposure to COVID-19
CPT/HCPCS: 70450; 71260; 80053; 81001; 84439; 84443; 85025; 85730; 99284; Q9967; U0002